=== PATIENT | female | born 1970 | race Hispanic/Latino ===

== ENCOUNTER 2022-12-27 14:52 | Emergency (ER) | payer OTHER, SELFPAY ==
[2022-12-27 15:04] VITALS: BP 109/87; PULSE 100; RESP 18; TEMP 36.8; O2SAT 97
--- NOTE | 2022-12-27 15:19 | ED.URI ---
HPI - URI/Sore Throat General Chief Complaint: Upper Respiratory Infection Stated Complaint: Sore Throat Time Seen by Provider: 12/27/22 15:22 History of Present Illness HPI Narrative: 52-year-old female presenting for complaint of sore throat, headache, and swollen lymph nodes worsening over the past 3 days. Temperature up to 100.3 yesterday. She also reports bilateral ear pain and dry mouth, and pain is worse with swallowing. She denies sick contacts. She denies shortness of breath, wheezing, nausea, vomiting, diarrhea. She is maintaining her secretions. Related Data Home Medications Medication Instructions Recorded Confirmed Invokamet 12/27/22 pantoprazole 20 mg tablet,delayed 20 mg PO HS 12/27/22 12/27/22 release rosuvastatin 5 mg tablet (Crestor) 5 mg PO DAILY 12/27/22 12/27/22 Allergies Allergy/AdvReac Type Severity Reaction Status Date / Time No Known Allergies Allergy Mild Verified 12/27/22 15:03 Review of Systems Review of Systems: Per HPI [facility] Past Medical History Medical History (Updated 12/27/22 @ 15:31 by Vanessa Lopes, CHEMICAL MAKER) No pertinent past medical history Exam Narrative: GENERAL: Ill-appearing, no acute distress. EYES: conjunctival injection bilaterally ENT: Mucous membranes moist. TMs pearly andujar with normal light reflex bilaterally; no tragal tenderness. Oropharynx severely erythematous Tonsils enlarged and without exudate. No drooling, no hoarseness, no trismus, uvula midline. No tripod positioning, hot potato voice, or soft palate swelling. NECK: Supple. Bilateral anterior cervical lymphadenopathy CHEST: Clear to auscultation, breath sounds equal. No respiratory distress, speaks in full sentences. HEART: Regular rate and rhythm. No murmur heard. SKIN: Warm, dry, no rash. NEURO: Alert and oriented x3. Course Course Emergency Course: Patient is aware of diagnosis, understands and agrees to treatment plan. Anticipatory guidance given. Patient agrees to follow-up as directed and is aware of reasons to seek care at the emergency department. Portions of this record may have been created with voice recognition software Level of Care: Express Care Visit Vital Signs Vital signs: Vital Signs Temperature 98.3 F 12/27/22 15:04 Pulse Rate 100 12/27/22 15:04 Respiratory Rate 18 12/27/22 15:04 Blood Pressure 109/87 12/27/22 15:04 Pulse Oximetry 97 12/27/22 15:04 Oxygen Delivery Room Air 12/27/22 15:04 Temperature 98.3 F 12/27/22 15:04 Pulse Rate 100 12/27/22 15:04 Respiratory Rate 18 12/27/22 15:04 Blood Pressure 109/87 12/27/22 15:04 Pulse Oximetry 97 12/27/22 15:04 Oxygen Delivery Room Air 12/27/22 15:04 MDM - URI/Sore Throat MDM Narrative Medical decision making narrative: strep result reviewed with pt. Advise supportive treatments. Patient is appropriate for outpatient treatment and follow-up. Differential Diagnosis Differential diagnosis: Likely upper respiratory infection, viral infection and pharyngitis Discharge Plan Discharge Clinical Impression: Strep pharyngitis Patient Disposition: Home, Self-Care Condition: Stable Instructions: Antibiotic Form, Strep Throat (ED) Additional Instructions: - Take the antibiotic as directed. Fever and sore throat typically resolve within one to three days. Most patients can return to work, school, or daycare after 12 to 24 hours of antibiotic therapy, provided you are fever free and otherwise well. -Eat and drink things that are easy to swallow, like soft foods, cool liquids, tea with honey, or popsicles . -Salt water gargles and/or may use topical anesthetic ( Chloraseptic spray) or lozenges to relieve dryness or throat pain -Alternate Tylenol and ibuprofen as needed for pain and fever as directed. -Frequent hand washing or hand advertising material distributor is one of the best ways to prevent spread of infection. Throw away the toothbrush after 24hours of antibiotic. -F
== END 2022-12-27 15:30 | disposition home or self-care (01) ==
PROVIDERS: Emergency Provider Nurse Practitioner Family
DX: J02.0 Streptococcal pharyngitis (principal)
CPT/HCPCS: 87880; 99213; G0463